=== PATIENT | female | born 1990 | race Caucasian/White ===

== ENCOUNTER 2018-11-07 18:26 | Emergency (ER) | payer OTHER ==
[~2018-11-07] VITALS: Ht 172.7 cm; Wt 67.1 kg
[2018-11-07] MEDS ORDERED: MORPHINE SULFATE INJ 4 MG/ML DISP.SYRIN ONE (19:15)
[2018-11-07] MEDS ORDERED: ONDANSETRON 4 MG TAB.RAPDIS ONE (19:15)
[2018-11-07] MEDS ORDERED: IV NS 0.9% 1,000 ML BAG IV ONE (19:30)
[2018-11-07] MEDS ORDERED: MORPHINE SULFATE INJ 2 MG/ML DISP.SYRIN IV ONE (19:30)
[2018-11-07] MEDS ORDERED: ACETAMINOPHEN ES 500 MG TABLET PO ONE (19:30)
[2018-11-07] MEDS ORDERED: ONDANSETRON 4 MG TAB.RAPDIS PO ONE (19:30)
[2018-11-07] MEDS ORDERED: ACETAMINOPHEN ES 500 MG TABLET ONE (19:33)
--- NOTE | 2018-11-07 19:38 | NUR ---
HEAD PAIN, DIZZINESS S/P HITTING A WALL EARLIER TODAY WHILE WALKING. + KO, + NAUSEA, NO VOMITING. PT AAOX4, VSS. DENIES ANY OTHER DISCOMFORT @ THIS TIME. PT SEEN & EVAL'D BY DANISHA NICHOLS. MEDICATED FOR KELLY & NAUSEA, PT CHASE WELL. MOM @ BS & WILL CONT TO MONITOR.
--- NOTE | 2018-11-07 19:38 | NUR ---
RECEIVED REPORT FROM MARKEL LANGSTON FOR RICH
[2018-11-07 19:39] LABS: CALCIUM, SERUM 9.1 mg/dL (8.5-10.1); CREATININE 0.7 mg/dL (0.6-1.3); POTASSIUM 3.8 mmol/L (3.5-5.1)
--- NOTE | 2018-11-07 19:45 | NUR ---
PT RETURNED FROM CT
[2018-11-07 19:49] LABS: BASOPHILS % (AUTO) 0.4 % (0.0-2.0); EOSINOPHILS % (AUTO) 5.2 % (0.0-6.0); HEMATOCRIT 39 % (33-45); HEMOGLOBIN 12.9 g/dL (11.5-14.8); LYMPHOCYTES # (AUTO) 1.3 /CMM (0.8-4.8); LYMPHOCYTES % (AUTO) 25.2 % (20.0-44.0); MEAN CORPUSCULAR HGB CONC 33 g/dl (31.0-36.0); MEAN CORPUSCULAR VOLUME 84 fL (82-100); MONOCYTES # (AUTO) 0.3 /CMM (0.1-1.30); MONOCYTES % (AUTO) 5.8 % (2.0-12.0); NEUTROPHILS # (AUTO) 3.2 /CMM (1.8-8.9); NEUTROPHILS % (AUTO) 63.4 % (43.0-81.0); PLATELET COUNT (AUTO) 182 /CMM (150-450); RED BLOOD CELL COUNT(AUTO) 4.61 MIL/uL (4.0-5.2)
--- NOTE | 2018-11-07 20:30 | NUR ---
Patient discharged to home in stable condition. Written and verbal after care instructions given. Patient verbalizes understanding of instruction. IV removed. Catheter intact and site benign. Pressure and 4x4 applied to site. No bleeding noted. Pt ambulatory with a steady gait
[2018-11-07 20:31] VITALS: BP 113/65
== END 2018-11-07 20:32 | disposition home or self-care (01) ==
LOC: ER 18:38
DX: S06.0X0A Concussion without loss of consciousness, initial encounter (principal); S09.8XXA Other specified injuries of head, initial encounter; R51 Headache; R42 Dizziness and giddiness; W22.8XXA Striking against or struck by other objects, initial encounter; Y93.01 Activity, walking, marching and hiking; Y92.89 Other specified places as the place of occurrence of the external cause; Y99.8 Other external cause status
CPT/HCPCS: 36415; 70450-TC; 80048-TC; 84703-TC; 85025-TC; 85730-TC; A4606; J2270; J7030; Q0162; Z7610

== ENCOUNTER 2018-12-23 18:49 | Emergency (ER) | payer OTHER ==
[~2018-12-23] VITALS: Ht 170.2 cm; Wt 60.8 kg
--- NOTE | 2018-12-23 19:55 | NUR ---
PT BIBSELF C/O LEFT BREAST PAIN X1 WEEK. -TRAUMA, -FEVER, -REDDNESS. PT AOX4. NAD NOTED. RESP EVEN AND UNLABORED. PT ON MONITOR IN BED 2 WITH FRIEND AT BEDSIDE. WILL CONTINUE TO MONITOR.
[2018-12-23 20:06] VITALS: BP 134/96
== END 2018-12-23 21:27 | disposition home or self-care (01) ==
LOC: ER 18:53
DX: N64.4 Mastodynia (principal)
CPT/HCPCS: 76642; 99284; A4606; Z7610